=== PATIENT | female | born 1980 | race Caucasian/White ===

== ENCOUNTER → 2020-01-26 15:48 | Outpatient (CLI) | payer BC, SELFPAY ==
--- NOTE | ~2020-01-26 | MM_ITS ---
EXAMINATION: MM screening luciano BI w rosina HISTORY: Screening mammogram TECHNIQUE: Craniocaudal and mediolateral oblique 3-D tomosynthesis images were obtained and synthetic 2-D images were generated. CAD analysis was submitted and interpreted. COMPARISON: None, baseline BREAST PARENCHYMAL COMPOSITION: The breasts are heterogeneously dense, which may obscure small masses . FINDINGS: RIGHT BREAST: There appear to be low-density masses in the upper outer quadrant of the right breast. No suspicious calcification or architectural distortion are identified. LEFT BREAST: There is no evidence of suspicious mass, calcification, or architectural distortion to s uggest malignancy. IMPRESSION: 1. Possible right breast masses. 2. Additional mammographic views and possible breast ultrasound are recommended to evaluate for fouzia lopez and establish a baseline given that this is the first mammographic examination. BI-RADS Category 0: Incomplete: Needs additional imaging evaluation. Reviewed, dictated and finalized at location A. IMPRESSION: 1. Possible right breast masses. 2. Additional mammographic views and possible breast ultrasound are recommended to evaluate for malignancy and establish a baseline given that this is the fir st mammographic examination. BI-RADS Category 0: Incomplete: Needs additional imaging evaluation.
== END ==
PROVIDERS: Visit Provider Obstetrics & Gynecology
DX: Z12.31 Encounter for screening mammogram for malignant neoplasm of breast (principal); R92.8 Other abnormal and inconclusive findings on diagnostic imaging of breast
CPT/HCPCS: 77063; 77067

== ENCOUNTER → 2020-05-18 08:18 | Outpatient (CLI) | payer BC, SELFPAY ==
--- NOTE | ~2020-05-18 | MMUS_ITS ---
EXAMINATION: MM diagnostic luciano RT w rosina, US breast RT limited HISTORY: Follow-up possible breast mass seen on recent screening mammogram TECHNIQUE: Additional 3-D tomosynthesis images of the right breast were performed and synthetic 2-D i mages were generated. CAD analysis was submitted and interpreted. High resolution right breast ultras ound was performed. COMPARISON: 01/26/2020 FINDINGS: MAMMOGRAPHIC FINDINGS: The breasts are extremely dense, which lowers the sensitivity of mammography. There is a possible mas s laterally in the right breast on CC view which is obscured by dense fibroglandular tissue. This is not visualized on MLO or mediolateral views. ULTRASOUND: Right breast ultrasound: At 10:00, 5 cm from the nipple, there is an irregular shaped hypoechoic mass with posterior attenuati on measuring 1.6 x 0.6 x 1.5 cm. No internal vascularity. At 10:00, 7 cm from the nipple, there is an oval circumscribed hypoechoic mass with internal striations measuring 1.5 x 0.5 x 1 cm. There is pos terior acoustic enhancement. IMPRESSION: 1. Suspicious mass of the right breast at 10:00, 5 cm from the nipple measuring 1.6 cm maximum dimens ion. An additional mass in the right breast at 10:00, 7 cm from the nipple measures up to 1.5 cm. 2. Ultrasound-guided right breast biopsy of these masses recommended. BI-RADS category 4, suspicious findings. Reviewed, dictated and finalized at location A. IMPRESSION: 1. Suspicious mass of the right breast at 10:00, 5 cm from the nipple measuring 1.6 cm maximum dimension. An additional mass in the right breast at 10:00, 7 c m from the nipple measures up to 1.5 cm. 2. Ultrasound-guided right breast biopsy of these masses recommended. BI-RADS category 4, suspicious findings.
== END ==
PROVIDERS: PCP Internal Medicine; Visit Provider Obstetrics & Gynecology
DX: R92.8 Other abnormal and inconclusive findings on diagnostic imaging of breast (principal)
CPT/HCPCS: 76642; 77061; 77065; G0279

== ENCOUNTER 2024-10-22 09:52 | Outpatient (CLI) | payer BC, SELFPAY ==
--- NOTE | ~2024-10-22 | US_ITS ---
EXAMINATION: US thyroid DATE: 10/22/2024 10:11 INDICATION: Thyroid nodule. TECHNIQUE: Multiple ultrasound images of the thyroid were obtained. COMPARISON: None. FINDINGS: The right thyroid lobe measures 4.6 x 1.6 x 1.6 cm. The left thyroid lobe measures 5.1 x 1.1 x 1.5 c m. In the left thyroid lobe, there is an 8 mm solid, very hypoechoic, wider than tall nodule with sm ooth margin without echogenic foci (TI-RADS TR4). In the left thyroid lobe, there is a 10 mm predomin antly solid, hypoechoic, wider than tall nodule with smooth margin without echogenic foci (TR4). In t he left thyroid lobe, there is an 8 mm solid, hypoechoic, wider than tall nodule with smooth margins without echogenic foci (TR4). IMPRESSION: 1. Small thyroid nodules. Consider thyroid ultrasound in one year. Reviewed, dictated and finalized at location A. ING COORDINATOR
== END 2024-10-22 09:53 | disposition home or self-care (01) ==
LOC: MICIMG 09:54
PROVIDERS: PCP Internal Medicine; Visit Provider Obstetrics & Gynecology
DX: E04.2 Nontoxic multinodular goiter (principal)
CPT/HCPCS: 76536